=== PATIENT | female | born 2000 | race Caucasian/White ===

== ENCOUNTER 2024-09-02 08:54 | Outpatient (OUT) | payer OTHER, SELFPAY | END 2024-09-02 08:55 | disposition home or self-care (01) | LOC: SLEEP 08:54 | PROVIDERS: PCP Nurse Practitioner Family; Visit Provider Nurse Practitioner Family | DX: G47.33 Obstructive sleep apnea (adult) (pediatric) (principal); G47.19 Other hypersomnia; R06.83 Snoring; J39.2 Other diseases of pharynx | CPT/HCPCS: 95806 ==